=== PATIENT | male | born 1970 | race Caucasian/White ===

== ENCOUNTER 2024-09-20 22:20 | Emergency (ER) | payer SELFPAY ==
[~2024-09-20] VITALS: Ht 182.9 cm; Wt 77.1 kg
[2024-09-20 22:39] VITALS: PULSE 89; RESP 20; TEMP 98.2; O2SAT 100
== END 2024-09-21 00:23 | disposition left against medical advice (07) ==
LOC: ER 22:52
DX: R10.2 Pelvic and perineal pain (principal)